=== PATIENT | female | born 1975 ===

== ENCOUNTER 2018-02-10 13:30 | Outpatient (CLI) | payer OTHER ==
[~2018-02-10 13:30] MED LIST: ACETAMINOOPHEN-1 TAB PO; NAPR500T14 PO; PROTONIX20 MG
== END 2018-02-10 13:48 | disposition home or self-care (01) ==
LOC: RAD 13:30
DX: R92.2 Inconclusive mammogram (principal); N80.3 Endometriosis of pelvic peritoneum; R10.2 Pelvic and perineal pain; N94.5 Secondary dysmenorrhea; N76.2 Acute vulvitis; Z01.818 Encounter for other preprocedural examination

== ENCOUNTER 2018-02-15 12:15 | Inpatient (IN) | payer OTHER ==
[~2018-02-15] VITALS: Ht 154.9 cm; Wt 63.5 kg
[2018-02-25] MEDS ORDERED: PROTONIX40 M1 PO (09:50)
[2018-02-25] MEDS ORDERED: CIPRO100 MG PO (09:50)
[2018-02-25] MEDS ORDERED: COLACE100 MG PO (09:50)
[2018-02-25] MEDS ORDERED: CELEBREX200MG PO (09:50)
== END 2018-02-25 11:44 | disposition home or self-care (01) | DRG 743 ==
LOC: OB/GYN 02-17 12:15 → O/R 02-24 05:45 → OB/GYN 02-24 08:30 → SURH 02-24 14:33
PROVIDERS: Obstetrics & Gynecology; Urology
PROC: 0USG4ZZ Reposition Vagina, Percutaneous Endoscopic Approach (ICD-10-PCS; 2018-02-24)
PROC: 0DNN4ZZ Release Sigmoid Colon, Percutaneous Endoscopic Approach (ICD-10-PCS; 2018-02-24)
PROC: 0T788DZ Dilation of Bilateral Ureters with Intraluminal Device, Via Natural or Artificial Opening Endoscopic (ICD-10-PCS; 2018-02-24)
PROC: 0UT9FZL Resection of Uterus, Supracervical, Via Natural or Artificial Opening With Percutaneous Endoscopic Assistance (ICD-10-PCS; principal; 2018-02-24 08:30)
PROC: 0UT7FZZ Resection of Bilateral Fallopian Tubes, Via Natural or Artificial Opening With Percutaneous Endoscopic Assistance (ICD-10-PCS; 2018-02-24 08:30)
PROC: 0UT1FZZ Resection of Left Ovary, Via Natural or Artificial Opening With Percutaneous Endoscopic Assistance (ICD-10-PCS; 2018-02-24 08:30)
DX: N80.0 Endometriosis of uterus (principal); N73.6 Female pelvic peritoneal adhesions (postinfective)